=== PATIENT | female | born 1945 | race Caucasian/White ===

== ENCOUNTER 2021-10-19 10:54 | Outpatient (RCR) | payer MEDICARE ==
[~2021-10-19 10:54] MED LIST: AMLOPIDINE; ULTRAM50 MG PO
== END 2021-10-29 | disposition home or self-care (01) ==
LOC: OT
DX: Z96.692 Finger-joint replacement of left hand (principal)

== ENCOUNTER 2021-10-30 09:56 | Outpatient (RCR) | payer MEDICARE | END 2021-11-20 09:40 | disposition still patient (30) | LOC: OT 09:56 | DX: Z96.692 Finger-joint replacement of left hand (principal) ==

== ENCOUNTER → 2021-11-16 | Outpatient (CLI) | payer MEDICARE | LOC: LAB 11:38 | DX: N39.0 Urinary tract infection, site not specified (principal) ==

== ENCOUNTER → 2021-12-22 | Outpatient (CLI) | payer MEDICARE | LOC: LAB 19:30 | DX: R35.0 Frequency of micturition (principal) ==

== ENCOUNTER → 2024-01-26 | Outpatient (CLI) | payer MEDICARE, OTHER | LOC: MAMMO 13:30 | DX: Z12.31 Encounter for screening mammogram for malignant neoplasm of breast (principal) ==

== ENCOUNTER → 2024-02-08 | Outpatient (CLI) | payer MEDICARE, OTHER | LOC: RAD 08:47 | DX: M51.360 Other intervertebral disc degeneration, lumbar region with discogenic back pain only (principal); M16.0 Bilateral primary osteoarthritis of hip ==

== ENCOUNTER → 2024-07-25 | Outpatient (CLI) | payer MEDICARE, OTHER | LOC: RAD 08:22 | DX: M16.11 Unilateral primary osteoarthritis, right hip (principal); M11.251 Other chondrocalcinosis, right hip ==